=== PATIENT | male | born 1975 | race Caucasian/White ===

== ENCOUNTER 2016-11-26 07:26 | Day surgery (SDC) | payer BC ==
[~2016-11-26] VITALS: Ht 188 cm; Wt 109.9 kg
[~2016-11-26 07:26] MED LIST: BACTRIM,SEPT1 TABLET PO; CEFDINIR300 MG PO; Claritin-D 24 Hour PO; Ecotrin PO; INDOCIN25 MG PO; VYVANSE60 MG PO
[2016-11-26 07:59] LABS: HEMATOCRIT 49.9 % (38.0-50.0); MCH 28.6 PG (29.0-34.0); MCHC 33.3 G/DL (30.0-36.0); MEAN PLAT.VOLUME 9.1 uM^3 (9.0-12.4); PLATELET COUNT 284 K/uL (156-360); RBC DIS.WIDTH-CV 14.3 % (11.8-14.6); RBC DIS.WIDTH-SD 45.1 % (39-53); WHITE BLOOD COUNT 13.3 K/uL (4.1-10.2)
[2016-11-26 08:20] LABS: ANION GAP 7 MEQ/L (2-14); CHLORIDE 97 MEQ/L (99-109); POTASSIUM 4.7 MEQ/L (3.7-5.4); SAMPLE HEMOLYSIS CHECK 0; SAMPLE ICTERIC CHECK 0; SAMPLE LIPEMIA CHECK 0; SODIUM 133 MEQ/L (136-147); TOTAL BILIRUBIN 0.8 MG/DL (0.0-1.0)
[2016-11-26 08:26] LABS: ALKALINE PHOSPHATASE 31 IU/L (3-129); GFR ESTIMATE (CALCULATED) > 59 mL/min/; GLUCOSE 114 mg/dL (70-99); UREA NITROGEN (BUN) 10 mg/dL (9-23)
[2016-11-26] MEDS ORDERED: PEPTO BISMOL240 ML PO (11:18)
[2016-11-26] MEDS ORDERED: ALEVE220 MG PO (11:18)
[2016-11-26] MEDS ORDERED: PEPTO BISMOL262 MG PO (11:19)
[2016-11-26] MEDS ORDERED: HYDROCODON-ACE1 EA11 PO (14:35)
[2016-11-26] MEDS ORDERED: OXYCODONE HCL5 MG PO (14:35)
[2016-11-26 16:35] VITALS: BP 114/52
[2016-11-26 19:35] VITALS: BP 104/55
[2016-11-26 23:31] VITALS: BP 113/55
[2016-11-27 04:10] VITALS: BP 102/54
[2016-11-27 06:48] LABS: HEMATOCRIT 47.1 % (38.0-50.0); MCH 28.5 PG (29.0-34.0); MCHC 32.7 G/DL (30.0-36.0); MCV 87.1 FL (86-99); MEAN PLAT.VOLUME 9.3 uM^3 (9.0-12.4); PLATELET COUNT 254 K/uL (156-360); RBC DIS.WIDTH-CV 14.4 % (11.8-14.6); RBC DIS.WIDTH-SD 45.8 % (39-53); RED BLOOD COUNT 5.41 M/uL (4.00-5.50); WHITE BLOOD COUNT 10.6 K/uL (4.1-10.2)
[2016-11-27 07:12] LABS: ANION GAP 5 MEQ/L (2-14); CHLORIDE 95 MEQ/L (99-109); GFR ESTIMATE (CALCULATED) > 59 mL/min/; GLUCOSE 93 mg/dL (70-99); POTASSIUM 4.7 MEQ/L (3.7-5.4); SAMPLE HEMOLYSIS CHECK 0; SAMPLE ICTERIC CHECK 0; SAMPLE LIPEMIA CHECK 0; SODIUM 133 MEQ/L (136-147); UREA NITROGEN (BUN) 12 mg/dL (9-23)
[2016-11-27 08:21] VITALS: BP 99/58
== END 2016-11-27 12:12 | disposition home or self-care (01) ==
LOC: EME 07:26 → SDC 12:40 → 2EAST 14:29 → 2SOUTH 14:29 → ENRESERV 14:33 → 2EAST 16:30
PROVIDERS: Surgery
PROC: 0DTJ0ZZ Resection of Appendix, Open Approach (ICD-10-PCS; principal; 2016-11-26)
DX: K35.80 Unspecified acute appendicitis (principal); Z53.31 Laparoscopic surgical procedure converted to open procedure; Z87.891 Personal history of nicotine dependence; F32.9 Major depressive disorder, single episode, unspecified; F98.8 Other specified behavioral and emotional disorders with onset usually occurring in childhood and adolescence
CPT/HCPCS: 74177; 80048; 80053; 81003; 85027; 88304; 93005; 94799; 99281; 99285; G0378; J0131; J0330; J1100; J1170; J1335; J2270; J2405; J2710; J3010; J7030; J7050; J7120; S0020

== ENCOUNTER 2017-10-31 11:10 | Emergency (ER) | payer BC ==
[~2017-10-31] VITALS: Ht 188 cm; Wt 106.2 kg
[~2017-10-31 11:10] MED LIST changes: +ALEVE220 MG PO; +HYDROCODON-ACE1 EA11 PO; +OXYCODONE HCL5 MG PO; +PEPTO BISMOL240 ML PO; +PEPTO BISMOL262 MG PO
[2017-10-31] MEDS ORDERED: ZOFRAN ODT4 MG PO (13:07)
[2017-10-31 13:16] VITALS: BP 147/91
== END 2017-10-31 13:16 | disposition home or self-care (01) ==
LOC: EME 11:10
PROC: 0HQ0XZZ Repair Scalp Skin, External Approach (ICD-10-PCS; principal; 2017-10-31)
DX: S01.01XA Laceration without foreign body of scalp, initial encounter (principal); S06.0X0A Concussion without loss of consciousness, initial encounter; Y00.XXXA Assault by blunt object, initial encounter
CPT/HCPCS: 70450; 99281; 99284